=== PATIENT | male | born 1995 | race African-American/Black ===

== ENCOUNTER 2019-01-21 05:41 | Emergency (ER) | payer SELFPAY ==
[~2019-01-21] VITALS: Ht 180.3 cm; Wt 54.7 kg
[2019-01-21] MEDS ORDERED: BACITRACIN ZINC OINT UDPKT TOP ONE (08:00)
[2019-01-21] MEDS ORDERED: IBUPROFEN 600MG TABLET PO ONE (08:00)
[2019-01-21] MEDS ORDERED: TETANUS, DIPHTHERIA, PERTUSSIS VAC/PF 0.5ML (>7YR OLD) IM ONE (08:00)
[2019-01-21 08:55] VITALS: BP 126/52
== END 2019-01-21 09:00 | disposition home or self-care (01) ==
LOC: ER 05:41
DX: S01.81XA Laceration without foreign body of other part of head, initial encounter (principal); J45.909 Unspecified asthma, uncomplicated; W01.0XXA Fall on same level from slipping, tripping and stumbling without subsequent striking against object, initial encounter; Y93.89 Activity, other specified; Y92.89 Other specified places as the place of occurrence of the external cause; Y99.8 Other external cause status
CPT/HCPCS: 90471; 90715; 99283

== ENCOUNTER 2019-09-05 19:25 | Emergency (ER) | payer MEDICAID ==
[~2019-09-05] VITALS: Ht 177.8 cm; Wt 53.4 kg
[2019-09-06] LABS: BASOPHILS % 0.5 % (0.0-2.0); EOSINOPHILS % 2.6 % (0.0-5.0); HEMATOCRIT. 41.6 % (42.0-52.0); HEMOGLOBIN. 14.6 g/dL (14.0-18.0); LYMPHOCYTES % 24.8 % (20.0-50.0); MEAN CORPUSCULAR HEMOGLOBIN 24.6 pg (28.0-32.0); MEAN PLATELET VOLUME 9.3 fl (7.4-10.4); MONOCYTES % 11.3 % (2.0-8.0); NEUTROPHILS % 60.8 % (40.0-76.0); PLATELET 239 x1000/uL (130-400); RED BLOOD CELL COUNT 5.95 mill/uL (4.7-6.1)
[2019-09-06 00:03] LABS: CHLORIDE 106 mEq/L (98-107)
[2019-09-06 02:21] LABS: PLATELET ESTIMATE NORMAL
[2019-09-06 02:29] VITALS: BP 113/69
== END 2019-09-06 02:29 | disposition home or self-care (01) ==
LOC: ER 20:13
DX: J45.909 Unspecified asthma, uncomplicated (principal); R07.89 Other chest pain; F12.10 Cannabis abuse, uncomplicated
CPT/HCPCS: 36415; 71045; 83880; 84484; 85379; 99284

== ENCOUNTER 2020-02-13 11:31 | Emergency (ER) | payer MEDICAID ==
[~2020-02-13] VITALS: Ht 180.3 cm; Wt 55.0 kg
[2020-02-13 11:47] VITALS: BP 124/84
[2020-02-13] MEDS ORDERED: HYDROXYZINE 25MG TABLET PO ONE (12:15)
== END 2020-02-13 13:47 | disposition home or self-care (01) ==
LOC: ER 11:31
DX: F41.0 Panic disorder [episodic paroxysmal anxiety] (principal); J45.909 Unspecified asthma, uncomplicated; F12.10 Cannabis abuse, uncomplicated
CPT/HCPCS: 93005; 99283

== ENCOUNTER 2020-03-02 10:12 | Emergency (ER) | payer MEDICAID ==
[~2020-03-02] VITALS: Ht 177.8 cm; Wt 57.0 kg
[2020-03-02 12:42] LABS: BASOPHILS % 0.3 % (0.0-2.0); EOSINOPHILS % 2.6 % (0.0-5.0); HEMATOCRIT. 43.7 % (42.0-52.0); HEMOGLOBIN. 15.2 g/dL (14.0-18.0); LYMPHOCYTES % 19.6 % (20.0-50.0); MONOCYTES % 8.8 % (2.0-8.0); NEUTROPHILS % 68.7 % (40.0-76.0); PLATELET 227 x1000/uL (130-400); RED BLOOD CELL COUNT 6.07 mill/uL (4.7-6.1); RED CELL DISTRIBUTION WIDTH 14.1 % (11.6-14.6)
[2020-03-02 12:51] LABS: CHLORIDE 106 mEq/L (98-107)
[2020-03-02] MEDS ORDERED: ACETAMINOPHEN 325MG TABLET PO ONE (13:30)
[2020-03-02 14:37] VITALS: BP 126/81
== END 2020-03-02 13:30 | disposition home or self-care (01) ==
LOC: ER 10:12
DX: R07.89 Other chest pain (principal); J45.909 Unspecified asthma, uncomplicated
CPT/HCPCS: 36415; 71045; 80048; 84484; 85025; 93005; 99285

== ENCOUNTER 2020-04-16 13:20 | Emergency (ER) | payer MEDICAID ==
[~2020-04-16] VITALS: Ht 177.8 cm; Wt 75.0 kg
[2020-04-16] MEDS ORDERED: KETOROLAC 30MG/ML VIAL IV STA (13:38)
[2020-04-16] MEDS ORDERED: METOCLOPRAMIDE HCL 10MG/2ML VIAL IV ONE (13:45)
[2020-04-16 14:03] LABS: BASOPHILS % 0.5 % (0.0-2.0); HEMATOCRIT. 40.2 % (42.0-52.0); HEMOGLOBIN. 13.9 g/dL (14.0-18.0); LYMPHOCYTES % 8.8 % (20.0-50.0); MEAN CORPUSCULAR HEMOGLOBIN 24.5 pg (28.0-32.0); MEAN CORPUSCULAR VOLUME 71.1 fL (80.0-94.0); MEAN PLATELET VOLUME 9.1 fl (7.4-10.4); MONOCYTES % 6.1 % (2.0-8.0); NEUTROPHILS % 83.6 % (40.0-76.0); PLATELET 214 x1000/uL (130-400); RED BLOOD CELL COUNT 5.65 mill/uL (4.7-6.1); RED CELL DISTRIBUTION WIDTH 13.8 % (11.6-14.6)
[2020-04-16 14:07] LABS: CHLORIDE 106 mEq/L (98-107)
[2020-04-16 15:37] LABS: BG BASE EXCESS -0.2 mmol/L (-2.0-2.0); BG CARBOXYHEMOGLOBIN 1.4 % (0.5-1.5); BG DEOXYHEMOGLOBIN 2.7 % (0.0-5.0); BG FRACTION INSPIRED OXYGEN 21; BG HCO3 ACT 24.3 mmol/L (22.0-26.0); BG METHEMOGLOBIN 0.5 % (0.0-1.5); BG OXYGEN SATURATION 97.2 % (92.0-98.5); BG OXYHEMOGLOBIN 95.4 % (94.0-97.0); BG PCO2 39.6 mmHg (35.0-45.0); BG PH 7.406 (7.350-7.450); BG PO2 91.3 mmHg (75.0-100.0); BG SAMPLE SITE RIGHT RADIAL; BG TOTAL HEMOGLOBIN 14.9 g/dL (12.0-18.0); BG VENT MODE ROOM AIR
[2020-04-16 16:01] VITALS: BP 110/66
== END 2020-04-16 16:04 | disposition home or self-care (01) ==
LOC: ER 13:35
DX: R51 Headache (principal); R00.2 Palpitations; F41.9 Anxiety disorder, unspecified; J45.909 Unspecified asthma, uncomplicated
CPT/HCPCS: 36415; 36600; 71045; 80053; 82375; 82805; 84484; 85025; 93005; 99285; J1885; J2765

== ENCOUNTER 2020-04-20 09:07 | Emergency (ER) | payer BC ==
[~2020-04-20] VITALS: Ht 180.3 cm; Wt 55.0 kg
[2020-04-20 10:30] LABS: BASOPHILS % 0.7 % (0.0-2.0); HEMATOCRIT. 42.5 % (42.0-52.0); HEMOGLOBIN. 14.9 g/dL (14.0-18.0); MEAN CORPUSCULAR HEMOGLOBIN 24.3 pg (28.0-32.0); MEAN CORPUSCULAR VOLUME 69.6 fL (80.0-94.0); MEAN PLATELET VOLUME 9.6 fl (7.4-10.4); MONOCYTES % 10.3 % (2.0-8.0); PLATELET 226 x1000/uL (130-400); RED CELL DISTRIBUTION WIDTH 13.6 % (11.6-14.6)
[2020-04-20 10:39] LABS: CHLORIDE 103 mEq/L (98-107)
[2020-04-20 10:47] LABS: PLATELET ESTIMATE NORMAL
[2020-04-20] MEDS ORDERED: ACETAMINOPHEN 500MG TABLET PO ONE (11:15)
[2020-04-20] MEDS ORDERED: IBUPROFEN 600MG TABLET PO ONE (11:15)
[2020-04-20 11:24] VITALS: BP 117/79
== END 2020-04-20 11:31 | disposition home or self-care (01) ==
LOC: ER 09:07
DX: I31.9 Disease of pericardium, unspecified (principal); F41.9 Anxiety disorder, unspecified; J45.909 Unspecified asthma, uncomplicated
CPT/HCPCS: 36415; 71045; 80053; 84484; 85025; 93005; 99285

== ENCOUNTER 2020-05-03 09:25 | Emergency (ER) | payer BC, MEDICAID ==
[~2020-05-03] VITALS: Ht 182.9 cm; Wt 57.0 kg
[2020-05-03] MEDS ORDERED: SODIUM CHLORIDE 0.9% 1,000 ML IV ONE (10:07)
[2020-05-03 10:25] LABS: BASOPHILS % 0.4 % (0.0-2.0); EOSINOPHILS % 6.3 % (0.0-5.0); HEMATOCRIT. 42.2 % (42.0-52.0); HEMOGLOBIN. 14.8 g/dL (14.0-18.0); LYMPHOCYTES % 18.7 % (20.0-50.0); MEAN CORPUSCULAR HEMOGLOBIN 24.3 pg (28.0-32.0); MEAN CORPUSCULAR VOLUME 69.2 fL (80.0-94.0); NEUTROPHILS % 66.6 % (40.0-76.0); PLATELET 242 x1000/uL (130-400); RED CELL DISTRIBUTION WIDTH 14.1 % (11.6-14.6)
[2020-05-03 10:27] LABS: CHLORIDE 105 mEq/L (98-107)
[2020-05-03 10:47] LABS: PLATELET ESTIMATE NORMAL
[2020-05-03 11:37] VITALS: BP 114/76
== END 2020-05-03 11:37 | disposition home or self-care (01) ==
LOC: ER 09:38
DX: R07.89 Other chest pain (principal); F41.9 Anxiety disorder, unspecified; J45.909 Unspecified asthma, uncomplicated
CPT/HCPCS: 36415; 71045; 80053; 84484; 85025; 85379; 93005; 96360; 99285; J7030

== ENCOUNTER 2020-05-04 19:57 | Emergency (ER) | payer BC ==
[~2020-05-04] VITALS: Ht 182.9 cm; Wt 57.0 kg
[2020-05-05 00:24] LABS: BASOPHILS % 0.4 % (0.0-2.0); EOSINOPHILS % 5.2 % (0.0-5.0); HEMATOCRIT. 40.1 % (42.0-52.0); HEMOGLOBIN. 14.1 g/dL (14.0-18.0); LYMPHOCYTES % 24.5 % (20.0-50.0); MEAN CORPUSCULAR HEMOGLOBIN 24.4 pg (28.0-32.0); MEAN CORPUSCULAR VOLUME 69.5 fL (80.0-94.0); MEAN PLATELET VOLUME 9.2 fl (7.4-10.4); MONOCYTES % 8.2 % (2.0-8.0); NEUTROPHILS % 61.7 % (40.0-76.0); PLATELET 246 x1000/uL (130-400); RED BLOOD CELL COUNT 5.77 mill/uL (4.7-6.1); RED CELL DISTRIBUTION WIDTH 14.2 % (11.6-14.6)
[2020-05-05 00:26] LABS: CHLORIDE 104 mEq/L (98-107)
[2020-05-05 01:02] LABS: PLATELET ESTIMATE NORMAL
[2020-05-05 01:41] VITALS: BP 114/73
== END 2020-05-05 01:49 | disposition home or self-care (01) ==
LOC: ER 19:57
DX: R07.89 Other chest pain (principal); J45.909 Unspecified asthma, uncomplicated
CPT/HCPCS: 36415; 71045; 80048; 84484; 85025; 99284

== ENCOUNTER 2020-07-18 12:16 | Emergency (ER) | payer BC ==
[~2020-07-18] VITALS: Ht 180.3 cm; Wt 59.0 kg
[2020-07-18 12:47] VITALS: BP 123/72
[2020-07-18] MEDS ORDERED: KETOROLAC 30MG/ML VIAL IM ONE (13:15)
== END 2020-07-18 16:42 | disposition home or self-care (01) ==
LOC: ER 12:16
DX: R07.89 Other chest pain (principal); J45.909 Unspecified asthma, uncomplicated
CPT/HCPCS: 71045; 93005; 96372; 99283; J1885

== ENCOUNTER 2020-09-20 10:24 | Emergency (ER) | payer BC ==
[~2020-09-20] VITALS: Ht 177.8 cm; Wt 60.0 kg
[2020-09-20] MEDS ORDERED: LORAZEPAM 0.5MG TABLET PO ONE (11:00)
[2020-09-20] MEDS ORDERED: IBUPROFEN 600MG TABLET PO ONE (11:00)
[2020-09-20 11:14] VITALS: BP 136/79
[2020-09-20 11:15] LABS: BASOPHILS % 0.4 % (0.0-2.0); EOSINOPHILS % 1.8 % (0.0-5.0); HEMATOCRIT. 43.6 % (42.0-52.0); HEMOGLOBIN. 15.1 g/dL (14.0-18.0); LYMPHOCYTES % 19.6 % (20.0-50.0); MEAN CORPUSCULAR VOLUME 69.4 fL (80.0-94.0); MEAN PLATELET VOLUME 9.2 fl (7.4-10.4); MONOCYTES % 7.7 % (2.0-8.0); NEUTROPHILS % 70.5 % (40.0-76.0); PLATELET 236 x1000/uL (130-400); RED BLOOD CELL COUNT 6.28 mill/uL (4.7-6.1); RED CELL DISTRIBUTION WIDTH 13.7 % (11.6-14.6)
[2020-09-20 11:22] LABS: CHLORIDE 103 mEq/L (98-107)
[2020-09-20 11:34] LABS: ETHANOL BLOOD < 10 mg/dL
[2020-09-20 11:35] LABS: PLATELET ESTIMATE NORMAL
== END 2020-09-20 12:05 | disposition home or self-care (01) ==
LOC: ER 10:32
DX: R07.89 Other chest pain (principal); F41.9 Anxiety disorder, unspecified; J45.909 Unspecified asthma, uncomplicated
CPT/HCPCS: 36415; 71045; 80053; 80320; 83880; 84484; 85025; 93005; 99285; A4315; G0480

== ENCOUNTER 2024-10-07 09:47 | Emergency (ER) | payer SELFPAY ==
[~2024-10-07] VITALS: Ht 182.9 cm; Wt 77.2 kg
[2024-10-07 09:50] VITALS: O2SAT 98
[2024-10-07 09:53] VITALS: BP 130/75; PULSE 78; RESP 18; TEMP 98.3; O2SAT 98
== END 2024-10-07 11:11 | disposition home or self-care (01) ==
LOC: ER 09:47
DX: H00.014 Hordeolum externum left upper eyelid (principal); J45.909 Unspecified asthma, uncomplicated; F41.9 Anxiety disorder, unspecified
CPT/HCPCS: 99281